=== PATIENT | male | born 1995 | race Two or more races ===

== ENCOUNTER 2018-01-22 11:51 | Emergency (ER) | payer OTHER ==
[2018-01-22 12:04] VITALS: BP 130/60
--- NOTE | 2018-01-22 12:30 | ER Document Report ---
HPI - HPI Patient complains to provider of: left shoulder pain Onset: Other - 01/20/18 Quality of pain: Achy Severity: Severe Pain Level: 5 Context: Patient presents emergency department with complaints of left shoulder pain. 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 He was changing the leaf [place] on a car when he turned quickly while his hands were raised up and felt a pop. Patient complains of severe pain since that time. He is been seen at the urgent care and x-ray has been done. Patient reports they said they did not know what was going on. Patient was given a work note but is still hurting. Patient denies pain with supination or pronation. Patient reports pain when attempting to lift his arm above his head or with any movement. He denies past medical history of injury to the shoulder. She reports numbness and tingling with onset of initial injury but none now. Associated Symptoms: None Exacerbated by: Movement Relieved by: Denies Similar symptoms previously: Yes Recently seen / treated by doctor: Yes Past Medical History - General Information source: Patient - Social History Smoking Status: Current Every Day Smoker Cigarette use (# per day): Yes Frequency of alcohol use: None Drug Abuse: None Occupation: mechanic senior Lives with: Family Family History: None Patient has suicidal ideation: No Patient has homicidal ideation: No - Medical History Medical History: Negative Surgical Hx: Negative Vertical Provider Document - CONSTITUTIONAL Agree With Documented VS: Yes Exam Limitations: No Limitations General Appearance: WD/WN, Mild Distress - winces with any movement to shoulder or with slight palpation - HEENT HEENT: Atraumatic, Normocephalic - NECK Neck: Normal Inspection, Supple. negative: Lymphadenopathy-Left, Lymphadenopathy-Right - RESPIRATORY Respiratory: No Respiratory Distress - CARDIOVASCULAR Cardiovascular: Regular Rate - GI/ABDOMEN Gastrointestinal: Abdomen Soft - BACK Back: Normal Inspection - MUSCULOSKELETAL/EXTREMETIES Musculoskeletal/Extremeties: Tender - left anterior shoulder, left upper arm ttp , no erythema swelling or warmth noted no obvious deformity good radial pulse good cap refill no complaints of numbness or tingling - NEURO Level of Consciousness: Awake, Alert, Appropriate Motor/Sensory: No Motor Deficit - DERM Integumentary: Warm, Dry Adult Front & Back Diagram: 1 - ttp 2 - ttp Course - Re-evaluation Re-evalutation: 01/22/18 13:22 pt was instructed on the importance of resting arm ice packs ibuprofen. Patient was also instructed to follow-up with orthopedics possible rotator cuff injury. He verbalized understanding - Vital Signs Vital signs: Temp Pulse Resp BP Pulse Ox 98.6 F 64 16 130/60 H 99 01/22/18 12:02 01/22/18 12:02 01/22/18 12:02 01/22/18 12:02 01/22/18 12:02 Procedures - Immobilization Left Shoulder Pre-Proc Neuro Vasc Exam: Normal Immobilizer type: Sling Performed by: PCT Post-Proc Neuro Vasc Exam: Unchanged from pre-exam Alignment checked and good: Yes Discharge - Discharge Clinical Impression: Left shoulder pain Qualifiers: Chronicity: acute Qualified Code(s): M25.512 - Pain in left shoulder Condition: Stable Disposition: HOME, SELF-CARE Instructions: Use of Lssf-Sce-Tgugtnd Ibuprofen ([facility]), Ice & Elevation ([facility]), Temporary Sling ([facility]) Additional Instructions: *You have been evaluated for shoulder injury, pain *Maintain the sling *Rest/Ice/Elevate the shoulder *Follow up with orthopedics-call for an appointment *Take ibuprofen as indicated *Return to ED for worsening condition, changes, needs Monitor your blood pressure. Your blood pressure was elevated today. This may be because you were anxious, in pain or because you need medication. It is important to follow up with your primary care provider for full evaluation. Forms: Elevated Blood Pressure, Return to Work
== END 2018-01-22 12:45 | disposition home or self-care (01) ==
LOC: ER 11:51
DX: M25.512 Pain in left shoulder (principal); X50.0XXA Overexertion from strenuous movement or load, initial encounter; Y93.89 Activity, other specified; Y99.0 Civilian activity done for income or pay; F17.210 Nicotine dependence, cigarettes, uncomplicated
CPT/HCPCS: 99283

== ENCOUNTER 2018-01-26 19:47 | Emergency (ER) | payer OTHER ==
--- NOTE | 2018-01-26 21:01 | ER Document Report ---
ED Extremity Problem, Upper - General Chief Complaint: Shoulder Injury Stated Complaint: LEFT SHOULDER PAIN Time Seen by Provider: 01/26/18 20:30 Mode of Arrival: Ambulatory Information source: Patient Notes: 22-year-old male presents to ED for continued pain in his left shoulder. He states that he was seen in the emergency room on the day that he had the accident and he was discharged home to follow-up with orthopedics but when he got to the emergent was out for his follow-up appointment Workmen's Comp. stated that he was not supposed to go there that they had not approved that and that he could not go to Ortho until they approve the visit. He states they told him that they were going to get approval for MRI and then decide when he could go to orthopedics. He states he was given a work note to go back to work on the but he cannot use the shoulder and has not yet been to orthopedics or had the MRI. He states that his Worker's Comp. told him to come to the urgent care or the ER to get another work note until he could get into see orthopedics. TRAVEL OUTSIDE OF THE [place] IN LAST 30 DAYS: No - HPI Patient complains to provider of: Left, Shoulder Onset: Other - 01/20/2018 Recent injury: Yes Where: Work Quality of pain: Achy, Sharp Severity of pain: Severe Pain Level: 5 Context: Other - Injured at work Associated symptoms: None Exacerbated by: Movement, Exertion Relieved by: Rest, Positioning Similar symptoms previously: Yes Recently seen / treated by doctor: Yes - Related Data Allergies/Adverse Reactions: No Known Allergies Allergy (Verified 01/26/18 19:48) Past Medical History - General Information source: Patient - Social History Smoking Status: Former Smoker Cigarette use (# per day): No Chew tobacco use (# tins/day): No Smoking Education Provided: No Frequency of alcohol use: None Drug Abuse: None Occupation: automechanic Lives with: Spouse/Significant other Family History: None Patient has suicidal ideation: No Patient has homicidal ideation: No - Past Medical History Cardiac Medical History: Reports: None Pulmonary Medical History: Reports: None EENT Medical History: Reports: None Neurological Medical History: Reports: None Endocrine Medical History: Reports: None Renal/ Medical History: Reports: None Malignancy Medical History: Reports None GI Medical History: Reports: None Musculoskeletal Medical History: Reports Hx Musculoskeletal Trauma - left shoulder injury Skin Medical History: Reports None Psychiatric Medical History: Reports: None Traumatic Medical History: Reports: None Infectious Medical History: Reports: None Surgical Hx: Negative Past Surgical History: Reports: None Review of Systems - Review of Systems Constitutional: No symptoms reported EENT: No symptoms reported Cardiovascular: No symptoms reported Respiratory: No symptoms reported Gastrointestinal: No symptoms reported Genitourinary: No symptoms reported Male Genitourinary: No symptoms reported Musculoskeletal: Joint pain - Left shoulder, Muscle pain, Muscle stiffness Skin: No symptoms reported Hematologic/Lymphatic: No symptoms reported Neurological/Psychological: No symptoms reported -: Yes All other systems reviewed and negative Physical Exam - Vital signs Vitals: Temp Pulse Resp BP Pulse Ox 98.7 F 79 16 127/60 H 97 01/26/18 19:55 01/26/18 19:55 01/26/18 19:55 01/26/18 19:55 01/26/18 19:55 Interpretation: Normal - General General appearance: Appears well, Alert - HEENT Head: Normocephalic, Atraumatic Eyes: Normal Pupils: PERRL - Respiratory Respiratory status: No respiratory distress Chest status: Nontender Breath sounds: Normal Chest palpation: Normal - Cardiovascular Rhythm: Regular Heart sounds: Normal auscultation Murmur: No - Abdominal Inspection: Normal Distension: No distension Bowel sounds: Normal Tenderness: Nontender Organomegaly: No organomegaly - Back Back: Normal, Nontender - Extremities General upper extremity: Normal inspection, Normal color, Normal temperature General lower extremity: Normal inspection, Nontender, Normal color, Normal ROM , Normal temperature, Normal weight bearing. No: Kenyatta's sign Shoulder: Tender, Limited ROM - Due to pain. No: Abrasion, Ecchymosis, Instability, Laceration Arm: Tender - Neurological Neuro grossly intact: Yes Cognition: Normal Orientation: AAOx4 [place] Coma Scale Eye Opening: Spontaneous [place] Coma Scale Verbal: Oriented [place] Coma Scale Motor: Obeys Commands [place] Coma Scale Total: 15 Speech: Normal Motor strength normal: LUE, RUE, LLE, RLE Sensory: Normal - Psychological Associated symptoms: Normal affect, Normal mood - Skin Skin Temperature: Warm Skin Moisture: Dry Skin Color: Normal Course - Re-evaluation Re-evalutation: 01/26/18 23:41 X-ray results are discussed with patient and written report of x-rays given the patient to follow-up with his Workmen's Comp. doctor and orthopedics. Patient was given a note for work that he could not use his left arm until cleared by orthopedics. Patient was instructed to continue elevation ice anti- inflammatories as previously instructed. Patient was also given instructions on shoulder exercises to start slowly using. Patient was instructed to follow- up with his work and have them contact his workers comp to get his follow-up with orthopedics. - Vital Signs Vital signs: Temp Pulse Resp BP Pulse Ox 98.2 F 69 16 122/80 100 01/26/18 22:28 01/26/18 22:28 01/26/18 22:28 01/26/18 22:28 01/26/18 22:28 - Diagnostic Test Radiology reviewed: Image reviewed, Reports reviewed Discharge - Discharge Clinical Impression: Left shoulder pain Qualifiers: Chronicity: unspecified Qualified Code(s): M25.512 - Pain in left shoulder Condition: Stable Disposition: HOME, SELF-CARE Instructions: Family Physicians / Practices Additional Instructions: Shoulder Injury You have injured your shoulder. This usually results from stretching or tearing of the tendons during trauma. Time and protection are required in order to heal properly. Many injuries are quite disabling, and should be taken seriously. Initial treatment includes cold packs and a sling to rest the shoulder. The physician has assessed the seriousness of your injury, and has outlined a treatment plan. Understand that this treatment may change, depending on how you progress. If a re-examination was recommended, it is important that you follow up as instructed. Some shoulder injuries (such as partial tear of the rotator cuff) are only suspected after you've failed to improve. Call us if there's severe pain, numbness, or loss of function. Anti-Inflammatory Medication Continue taking your antiinflammatory agent. This is an excellent, safe drug for pain control. In addition, it has potent antiinflammatory effects which are beneficial, especially in the treatment of injuries, arthritis, or tendonitis. It's best to take this medicine with food. Persons with ulcer disease or allergy to aspirin should notify their physician of this before taking this drug. Take the medication exactly as prescribed. Don't take additional doses unless instructed to do so by your doctor. If you develop wheezing, shortness of breath, hives, faintness, stomach pain, vomiting, or dark black stools, return for re-evaluation at once. Use your sling as previously instructed Exercise Program for the Shoulder Since the shoulder moves in so many directions, the joint attachment is weak. Muscles provide most of the stability to the shoulder. You must exercise your shoulder to prevent painful instability or stiffening. PASSIVE - These may be begun within a few days of the injury. While standing, lean forward, allowing the arm to hang down towards the floor. Move the arm in small circles while slowly twisting your chest towards and away from the hanging arm. Do this for one minute. ACTIVE - These may be performed when the doctor gives permission. Begin with the arms at the sides. Raise the arms forward (shoulder's width apart) until they reach shoulder level. Then slowly swing both arms back until they are aiming straight out away from each other. Then bring them forward again, and finally, lower them to your sides. Repeat 20 to 30 times. As you improve, put weights in your hands for the exercise. Start with one pound, and work up to 10 pounds. Never use more than is comfortable. Athletes may work up to 30 pounds. FOLLOW-UP CARE: If you have been referred to a physician for follow-up care, call the physician s office for an appointment as you were instructed or within the next two days. If you experience worsening or a significant change in your symptoms, notify the physician immediately or return to the Emergency Department at any time for re-evaluation. Forms: Elevated Blood Pressure, Special Work Note
--- NOTE | 2018-01-26 21:55 | RADIOLOGY REPORT (SQ) ---
EXAM DESCRIPTION: SHOULDER LEFT 2 OR MORE VIEWS COMPLETED DATE/TIME: 01/26/2018 9:22 pm REASON FOR STUDY: injury on 01/20/18 COMPARISON: None. NUMBER OF VIEWS: Three views. TECHNIQUE: Internal rotation, external rotation, and Y view images acquired of the left shoulder. LIMITATIONS: None. FINDINGS: MINERALIZATION: Normal. BONES: No acute fracture or dislocation. No worrisome bone lesions. JOINTS: No dislocation. VISUALIZED LUNGS AND RIBS: No pneumothorax. No rib fracture. SOFT TISSUES: No radiopaque foreign body. OTHER: No other significant finding. IMPRESSION: NO RADIOGRAPHIC EVIDENCE OF ACUTE INJURY. TECHNICAL DOCUMENTATION: JOB ID: [id number] [place]-72 2010 [employer]- All Rights Reserved Reading location - IP/workstation name: [email or web address]
[2018-01-26 22:30] VITALS: BP 122/80
== END 2018-01-26 22:29 | disposition home or self-care (01) ==
LOC: ER 19:47
DX: M25.512 Pain in left shoulder (principal); X58.XXXA Exposure to other specified factors, initial encounter; Y99.0 Civilian activity done for income or pay; Z87.891 Personal history of nicotine dependence
CPT/HCPCS: 99283

== ENCOUNTER 2018-11-29 20:56 | Emergency (ER) | payer SELFPAY ==
[2018-11-29] MEDS ORDERED: TRANEXAMIC ACID INJ/PF 1,000 MG/10 ML SDV IV ONE (21:34)
[2018-11-29] MEDS ORDERED: DIPH/PERTUSS(ACELL)/TETANUS VAC/PF 0.5 ML SYR (>=10YO) IM ONE (22:41)
[2018-11-29] MEDS ORDERED: ONDANSETRON 4 MG TAB.RAPDIS PO ONE (22:41)
[2018-11-29] MEDS ORDERED: OXYCODONE-ACETAMINOPHEN 5-325 MG TABLET PO ONE (22:41)
[2018-11-29] MEDS ORDERED: LIDOCAINE 1%/EPINEPHRINE INJ 20 ML VIAL INJ ONE (22:41)
--- NOTE | 2018-11-29 22:42 | ER Document Report ---
ED Wound - General Chief Complaint: Laceration Stated Complaint: ARM LACERATION Time Seen by Provider: 11/29/18 22:35 TRAVEL OUTSIDE OF THE [place] IN LAST 30 DAYS: No - HPI Notes: Patient is a 23-year-old male who presents to the emergency department with a chief complaint of laceration to his left upper arm. Patient states that prior to arrival he was walking past a truck when he ran into a metal decal causing the laceration. Patient states he is not up-to-date on his tetanus. Patient states the injury was bleeding significantly and he was able to control the bleeding with pressure. Patient denies numbness or tingling to his left upper arm distal to the injury. Patient denies any other injury. - Related Data Allergies/Adverse Reactions: No Known Allergies Allergy (Verified 01/26/18 19:48) Past Medical History - General Information source: Patient - Social History Smoking Status: Never Smoker Lives with: Spouse/Significant other Family History: None Patient has suicidal ideation: No Patient has homicidal ideation: No - Past Medical History Cardiac Medical History: Reports: None Pulmonary Medical History: Reports: None EENT Medical History: Reports: None Neurological Medical History: Reports: None Endocrine Medical History: Reports: None Renal/ Medical History: Reports: None. Denies: Hx Peritoneal Dialysis Malignancy Medical History: Reports None GI Medical History: Reports: None Musculoskeletal Medical History: Reports Hx Musculoskeletal Trauma - left shoulder injury Skin Medical History: Reports None Psychiatric Medical History: Reports: None Traumatic Medical History: Reports: None Infectious Medical History: Reports: None Surgical Hx: Negative Review of Systems - Review of Systems Constitutional: No symptoms reported EENT: No symptoms reported Cardiovascular: No symptoms reported Respiratory: No symptoms reported Gastrointestinal: No symptoms reported Genitourinary: No symptoms reported Male Genitourinary: No symptoms reported Musculoskeletal: No symptoms reported Skin: See HPI Hematologic/Lymphatic: No symptoms reported Neurological/Psychological: No symptoms reported Physical Exam - Vital signs Vitals: Temp Pulse Resp BP Pulse Ox 99.3 F 67 16 97/50 L 97 11/29/18 21:04 11/29/18 21:04 11/29/18 21:04 11/29/18 21:04 11/29/18 21:04 Interpretation: Normal - Notes Notes: GENERAL: Well-appearing, well-nourished and in no acute distress. HEAD: Atraumatic, normocephalic. EYES: Pupils equal round and reactive to light, extraocular movements intact, sclera anicteric, conjunctiva are normal. ENT: TMs normal, nares patent, oropharynx clear without exudates. Moist mucous membranes. NECK: Normal range of motion, supple without lymphadenopathy or JVD. LUNGS: Breath sounds clear to auscultation bilaterally and equal. No wheezes rales or rhonchi. HEART: Regular rate and rhythm without murmurs, rubs or gallops. ABDOMEN: Soft, nontender, normoactive bowel sounds. No guarding, no rebound. No masses appreciated. EXTREMITIES: 4.5 cm left upper arm laceration that approximates well, patient is able to flex and extend forearm with and without resistance, is able to make a fist with strong instrumentation and controls designer to left hand, +2 strong left brachial and radial pulses. < 2 sec cap refill to the fingers of left hand. NEUROLOGICAL: Cranial nerves II through XII grossly intact. Normal speech, normal gait. PSYCH: Normal mood, normal affect. SKIN: Warm, Dry, normal turgor, no rashes or lesions noted. Course - Re-evaluation Re-evalutation: 11/30/18 X-ray of the left upper extremity did not show a foreign body or any abnormalities. Laceration was repaired as documented. Patient did tolerate this well. Tetanus was updated while in the emergency department. Patient instructed to keep the area clean and dry and to return in 7 to 10 days to have the sutures removed. - Vital Signs Vital signs: Temp Pulse Resp BP Pulse Ox 99.3 F 67 20 117/66 97 11/29/18 21:04 11/29/18 21:04 11/30/18 01:01 11/30/18 01:01 11/30/18 01:01 - Diagnostic Test Radiology reviewed: Reports reviewed Procedures - Laceration/Wound Repair Left Upper Arm Wound length (cm): 4.5 Wound's Depth, Shape: Superficial, Flap Laceration pre-procedure: Sterile PPE donned, Sterile drapes applied, Shur-Clens applied Anesthetic type: 1% Lidocaine w/epi Volume Anesthetic (mLs): 6 Wound explored: Clean, No foreign body removed Irrigated w/ Saline (mLs): 500 Wound Repaired With: Sutures Suture Size/Type: 4:0 Number of Sutures: 8 Post-procedure NV exam normal: Yes Complications: No Adult Front & Back picture: 1 - 4.5 cm laceration Discharge - Discharge Clinical Impression: Laceration Condition: Stable Disposition: HOME, SELF-CARE Instructions: Antibiotic Ointment Protection ([facility]), Laceration Care ([facility]), Tetanus Immunization Given ([facility]) Additional Instructions: Today you were seen in the emergency department for an left upper arm laceration. This laceration was irrigated and cleansed with antiseptic soap and sterile saline. You have had 8 sutures placed. These need to come out in 7 to 10 days. Please limit the use of your left arm and keep the area clean and dry. You may use an ijvj-baz-gbiwzti antibiotic ointment. Soak wound. Keep the dressing on for 48 hours, at that time you may remove and replace the dressing to keep the area clean. Laceration Care Your laceration has been sutured to keep the skin edges aligned during healing. The time of suture removal depends on the nature and location of your cut. Please follow the care instructions the doctor has outlined for you and return for further care, according to the schedule you've been given. Keep the wound and dressing clean. Unless you were told otherwise, you may shower daily, blotting the wound dry with a clean, unused towel. At other times, If the dressing gets wet or blood soaked, remove it and blot the wound dry, then reapply a new dressing. Unless you were instructed otherwise, dressi ngs should be changed at least daily. If any signs of infection occur (swelling, redness, increasing tenderness, red streaks, tender lumps in the armpit or groin above the laceration, or fever), see the doctor immediately.
--- NOTE | 2018-11-29 23:02 | RADIOLOGY REPORT (SQ) ---
EXAM DESCRIPTION: XR HUMERUS COMPLETED DATE/TME: 11/29/2018 21:51 CLINICAL HISTORY: 23 years, Male, laceration COMPARISON: None. NUMBER OF VIEWS: TECHNIQUE: LIMITATIONS: None. FINDINGS: There is a small amount of soft tissue air, in the region of the patient's laceration. No evidence of radiopaque foreign body within the soft tissues. No fracture. Mineralization of bone appears normal. IMPRESSION: Small amount of soft tissue air, in the region of the patient's laceration. copyright 2010 [employer]- All Rights Reserved
[2018-11-30] MEDS ORDERED: DIPH/PERTUSS(ACELL)/TETANUS VAC/PF 0.5 ML SYR (>=10YO) IM ONE (01:07)
[2018-11-30 01:22] VITALS: BP 117/66
== END 2018-11-30 01:22 | disposition home or self-care (01) ==
LOC: ER 20:56
DX: S41.112A Laceration without foreign body of left upper arm, initial encounter (principal); W22.09XA Striking against other stationary object, initial encounter; Z23 Encounter for immunization
CPT/HCPCS: 99283; 90471; 73060; 90715; 12002; S0119; J3490